=== PATIENT | male | born 1980 | race African-American/Black ===

== ENCOUNTER 2018-08-08 18:08 | Emergency (ER) | END 2018-08-08 21:59 | disposition home or self-care (01) ==

== ENCOUNTER 2018-08-09 01:28 | Emergency (ER) | payer MEDICAID, OTHER ==
[~2018-08-09] VITALS: Wt 60.4 kg
[~2018-08-09 01:28] MED LIST: ACET325T33 PO; ONDA8TAB14 PO
[2018-08-09] MEDS ORDERED: HYDROCODONE/APAP (10/325) TAB PO ONE (05:00)
[2018-08-09] MEDS ORDERED: INSU100I12 SQ (05:30)
[2018-08-09] MEDS ORDERED: INSU100V3 IJ (05:30)
[2018-08-09] MEDS ORDERED: HYDR-3980 PO ×2 (05:30→05:54)
[2018-08-09] MEDS ORDERED: GABA300C16 PO (05:30)
[2018-08-09 06:30] VITALS: BP 121/86; PULSE 78; RESP 14
--- NOTE | 2018-09-04 23:33 | ERD ---
ER Documentation Chief Complaint Chief Complaint NAUSEA, VOMIT, WEAKNESS, "FAMILY TRAGEDY TODAY" HPI This is a 38-year-old male complains of nausea vomiting weakness and body aches after a "family tragedy today ". Denies suicidal homicidal ideation. Denies auditory or visual hallucination. ROS All systems reviewed and are negative except as per history of present illness. Medications Home Meds Active Scripts Hydrocodone/Acetaminophen ([facility] 10-325 Tablet) 1 Each Tablet, 1 TAB PO Q6H PRN for PAIN, #7 TAB Prov:KEV CALERO 08/09/18 Acetaminophen* (Tylenol*) 325 Mg Tablet, 2 TAB PO Q6 PRN for PAIN AND OR ELEVA RAFI TEMP, #30 TAB Prov:OG DIALLO PA-C 08/08/18 Ondansetron (Ondansetron Odt) 8 Mg Tab.rapdis, 8 MG PO Q6H PRN for NAUSEA AND/OR VOMITING, #20 TAB Prov:OG DIALLO PA-C 08/08/18 Reported Medications Hydrocodone/Acetaminophen ([facility] 10-325 Tablet) 1 Each Tablet, 1 EACH PO, TAB 08/09/18 Gabapentin* (Gabapentin*) 300 Mg Capsule, 300 MG PO TID, #90 CAP 08/09/18 Insulin Lispro (Humalog Kwikpen U-100) 100 Unit/1 Ml Insuln.pen, 0 SQ SS, EA 08/09/18 Insulin Regular, Human (Humulin R) 100 Unit/1 Ml Vial, 0 IJ SS, VIAL 08/09/18 Allergies Allergies: Coded Allergies: ibuprofen (Verified Allergy, Unknown, 08/08/18) PMhx/Soc History of Surgery: Yes (R LEG BKA, LEFT FOOT PARTIAL AMPUTATION) Hx Miscellaneous Medical Probl: Yes (DM) Hx Alcohol Use: No Hx Substance Use: No Hx Tobacco Use: No Smoking Status: Never smoker Physical Exam Physical Exam Const: No acute distress Head: Atraumatic Eyes: Normal Conjunctiva ENT: Normal External Ears, Nose and Mouth. Neck: Full range of motion. No meningismus. Resp: Clear to auscultation bilaterally Cardio: Regular rate and rhythm, no murmurs Abd: Soft, non tender, non distended. Normal bowel sounds Skin: No petechiae or rashes Back: No midline or flank tenderness Ext: No cyanosis, or edema Neur: Awake and alert Psych: Normal Mood and Affect Results 24 hrs Current Medications Medications Dose Sig/Nessa Start Time Status Last (Trade) Ordered Route PRN Stop Time Admin Dose Reason Admin 1 tab ONCE ONCE 08/09/18 DC 08/09/18 Acetaminophen PO 05:00 05:04 / 08/09/18 Hydrocodone 05:01 Bitart ([facility] ()) Procedures/MDM Medical decision makin-year myself anxiety and anxiety related sequelae. At this point clinically stable for outpatient management. Patient is discharged home and asked to follow-up with primary care physician. Departure Diagnosis: Primary Impression: Multiple complaints Condition: Stable Patient Instructions: Myalgias KEV CALERO Sep 04, 2018 23:33
== END 2018-08-09 08:15 | disposition home or self-care (01) ==
LOC: E/R 01:28
DX: F41.9 Anxiety disorder, unspecified (principal); E11.9 Type 2 diabetes mellitus without complications; Z79.4 Long term (current) use of insulin
CPT/HCPCS: 99283

== ENCOUNTER 2018-08-09 08:43 | Emergency (ER) | END 2018-08-09 10:41 | disposition left against medical advice (07) ==